=== PATIENT | female | born 1950 | race Caucasian/White ===

== ENCOUNTER 2020-01-05 14:05 | Inpatient (IN) | payer MEDICARE, OTHER ==
[~2020-01-05] VITALS: Ht 152.4 cm; Wt 50.8 kg
[2020-01-05] MEDS ORDERED: CLON0.5T4 PO (14:21)
[2020-01-05] MEDS ORDERED: NA P133E RC (14:21)
[2020-01-05] MEDS ORDERED: BISA10SU61 RC (14:21)
[2020-01-05] MEDS ORDERED: CHOL239. PO (14:21)
[2020-01-05] MEDS ORDERED: ZINC28PA TP (14:21)
[2020-01-05] MEDS ORDERED: LISI30TA4 PO (14:21)
[2020-01-05] MEDS ORDERED: HYDR-4384 PO (14:21)
[2020-01-05] MEDS ORDERED: ESCI20TA PO (14:21)
[2020-01-05] MEDS ORDERED: CLON1TAB12 PO (14:21)
[2020-01-05] MEDS ORDERED: ACET-2605 PO (14:22)
[2020-01-05] MEDS ORDERED: MEMA1CAP3 PO (14:22)
[2020-01-05] MEDS ORDERED: MIRT15TA7 PO (14:22)
[2020-01-05] MEDS ORDERED: DIPH1TAB PO (14:22)
[2020-01-05] MEDS ORDERED: MARINOL PO (14:22)
[2020-01-05] MEDS ORDERED: AMLO10TA4 PO (14:22)
[2020-01-05] MEDS ORDERED: PANT40TA2 PO (14:22)
[2020-01-05] MEDS ORDERED: MULT-594 PO (14:22)
[2020-01-05] MEDS ORDERED: ONDA-104 PO (14:22)
[2020-01-05] MEDS ORDERED: QUET25TA PO (14:22)
[2020-01-05] MEDS ORDERED: RISP0.5T20 PO (14:22)
[2020-01-05] MEDS ORDERED: MAGN400O6 PO (14:22)
[2020-01-05] MEDS ORDERED: MELA3TAB41 PO (14:22)
--- NOTE | 2020-01-05 14:28 | NUR ---
1:1 sitter at bedside
--- NOTE | 2020-01-05 14:30 | NUR ---
Patient noted with increased agitation and repeated attempts to get out of bed unassisted. Attempted to redirect patient, patient noted swinging arms, slapping, and attempting to bite staff. Dr. Zurita made aware with new orders received
--- NOTE | 2020-01-05 14:40 | NUR ---
1:1 sitter at bedside
--- NOTE | 2020-01-05 14:40 | NUR ---
Patient placed on albertina chair per Dr. Zurita's orders
[2020-01-05] MEDS ORDERED: LORAZEPAM 2 MG/1 ML VIAL IM ONE (14:45)
[2020-01-05] MEDS ORDERED: HALOPERIDOL LACTATE 5 MG/1 ML VIAL IM ONE (14:45)
[2020-01-05] MEDS ORDERED: HALOPERIDOL LACTATE 5 MG/1 ML VIAL ONE (14:46)
[2020-01-05] MEDS ORDERED: LORAZEPAM 2 MG/1 ML VIAL ONE (14:48)
--- NOTE | 2020-01-05 15:46 | NUR ---
Called Quynh Nuñez requesting to evaluate patient. Per Quynh will wait on COVID-19 results before evaluating patient
--- NOTE | 2020-01-05 17:32 | NUR ---
Quynh Nuñez notified with ETA of 20 mins
--- NOTE | 2020-01-05 18:00 | NUR ---
Patient in albertina chair calm and watching TV 1:1 sitter at bedside
--- NOTE | 2020-01-05 18:15 | NUR ---
Quynh Nuñez at bedside to evaluate patient
--- NOTE | 2020-01-05 19:13 | NUR ---
Assumed care of patient from KHARI Bruce.
[2020-01-05] MEDS ORDERED: MAG HYDROX/AL HYDROX/SIMETH 30 ML LIQUID UDC PO PRN (19:45)
[2020-01-05] MEDS ORDERED: BLOOD SUGAR DIAGNOSTIC 1 EACH STRIP VI ONE (19:45)
[2020-01-05] MEDS ORDERED: CLONAZEPAM 0.5 MG TABLET PO PRN (19:45)
[2020-01-05] MEDS ORDERED: MAGNESIUM HYDROXIDE 30 ML LIQUID UDC PO PRN (19:45)
--- NOTE | 2020-01-05 19:45 | NUR ---
Pt. admitted to [facility]HU, under care of Dr. Kaur. Belongs List completed. Report given to KHARI Hensley.
[2020-01-05 20:13] VITALS: BP 123/78
--- NOTE | 2020-01-05 21:30 | NUR ---
GPS ADMISSION NOTE: AT APPROX 1999, ADMITTED 69 YEARS OLD FEMALE TO [facility] ON A 5150 FOR GD AND DTO. PATIENT RESIDES AT [facility]. ACCORDING TO THE HOLD, PATIENT WAS BIBA TO [facility] D/T PATIENT HAD EPISODES OF AGITATION, HAS BEEN REFUSING MEDICATION AND SHOWED AGGRESSION TOWARD STAFF AND RESIDENTS AT HER SNF. SHE WAS PUT IN RESTRAIN ON IN ROAD D/T KICKING BITTING AND HITTING. AT [facility], PATIENT WAS MEDICALLY CLEARED AND GIVEN ATIVAN 1 MG IM. UPON ADMISSION, PATIENT WAS NOTED A/O X 1, ANXIOUS, BUT REDIRECTABLE. PT IS UNABLE TO HAVE A MEANINGFUL CONVERSATION WITH THIS EVALUATION ANALYST. SHE WAS UNABLE TO COOPERATE WITH THE ADMISSION PROCESS. PT WAS ADVISED OF HER HOLD AND HER ADVISEMENT WAS GIVEN WELL HAS HER "PATIENT'S RIGHT FOR MENTAL HEALTH" BOOKLET. SHOWER WAS GIVEN. SKIN ASSESSMENT DONE. MULTIPLE ABRASION AND BRUISES WERE NOTED IN BOTH ARMS AND LEFT KNEE REDNESS. IT WAS ALSO NOTED BLISTER IN BOTH INNER BIG TOES. WOUND CONS WAS ORDERED. PT APPEARS TO AMBULATE WITH STEADY GAIT; HOWEVER, PT WAS ORDER WAS WELL. PT IS UNDER THE CARE OF DR ZAMORA. WILL CONTINUE WITH Q15 MIN CHECKS.
--- NOTE | 2020-01-06 06:47 | NUR ---
PATIENT SLEPT FOR APPROX 7.30 HRS THROUGH THE NIGHT. SHE IS NOTED CONFUSED, WONDERING AND HARD TO REDIRECT. WILL CONTINUE TO MONITOR.
[2020-01-06 07:30] VITALS: BP 144/62
[2020-01-06 07:33] LABS: BILIRUBIN,TOTAL 0.8 mg/dL (0.2-1.0); POTASSIUM 3.8 mmol/L (3.5-5.1); TOTAL PROTEIN, SERUM 7.3 g/dL (6.4-8.2)
--- NOTE | 2020-01-06 09:59 | NUR ---
SNF CONTACT: SW contacted [facility] [address], [place] [address] and spoke with Tamara, application support administrator who stated pt has been a resident at the facility since 11/25/2017 and states that pts re-acceptance to the facility is contingent upon review of clinical information and proof of stability.
--- NOTE | 2020-01-06 10:19 | NUR ---
FAMILY CONTACT: SW contacted pts Linette ([phone]) for collateral information, treatment/discharge planning. Per , this is pts first psychiatric hospitalization and states that pt has been diagnosed with Dementia 8 years ago. Per , pts behaviors worsened in August as soon as the COVID-19 lock down happened. She states pt has become aggressive and threatening to kick and punch staff and also refusing medication and trying to elope. Pt is also having delusional and often states that people are cutting her arms and are tying and beating her. states that pt has frequent bladder infections and that recently blood work revealed that she may have a tumor in her stomach but pt has refused to get a CT scan. stated that she wishes for pt to return to [facility] once stable for discharge.
--- NOTE | 2020-01-06 10:59 | NUR ---
INITIAL DISCHARGE PLAN: Per Linette ([phone]) she wishes for pt to return to [facility] [address] [place] [address] . ANNETTE spoke with Tamara, home health administrator who stated pt has been a resident at the facility since 11/25/2017 and states that pts re-acceptance to the facility is contingent upon review of clinical information and proof of stability. ANNETTE will help form a safe and proper discharge plan in collaboration with .
[2020-01-06] MEDS: CLONAZEPAM 1 MG TABLET PO PRN (11:35)
[2020-01-06] MEDS: risperiDONE 0.5 MG TABLET PO SCH ×2 (15:05→20:40)
[2020-01-06] MEDS: ESCITALOPRAM OXALATE 10 MG TABLET PO SCH (15:05)
[2020-01-06 16:41] VITALS: BP 147/75
[2020-01-06] MEDS: MIRTAZAPINE 15 MG TABLET PO SCH (20:40)
[2020-01-06 21:22] VITALS: BP 148/82
--- NOTE | 2020-01-07 04:15 | NUR ---
Patient noted wondering in the hallway. She stated, "I need to go home". patient was redirected; Hoever, she continue stating, "This is not my bed, I want to go home". Patient was redirected, and reoriented to place and time. She agreed to stay in bed and she quickly went back to sleep.will continue to monitor.
--- NOTE | 2020-01-07 06:21 | NUR ---
GPS/NSG DR. Bland contacted and informed of wound consult.
[2020-01-07 07:30] VITALS: BP 127/58
[2020-01-07] MEDS: risperiDONE 0.5 MG TABLET PO SCH ×2 (09:01→20:57)
[2020-01-07] MEDS: ESCITALOPRAM OXALATE 10 MG TABLET PO SCH (09:01)
--- NOTE | 2020-01-07 11:20 | NUR ---
WOUND CARE CONSULT: PT SEEN FOR BILATERAL ARM DISCOLORATION AND DRY ABRASIONS. NO DRAINAGE, ERYTHEMA OR TENDERNESS NOTED. WILL SEE PRN. PT IS AMBULATORY.
--- NOTE | 2020-01-07 11:23 | NUR ---
Gps/Trail Maintenance Worker- Wound Care Nurse Kassandra romero to see patient, checked scratches/abrasion, bruising to her forearms and right elbow, redness noted appeared to be dry. Poorly groomed toebnails, flaky bunions/redness .
--- NOTE | 2020-01-07 12:01 | NUR ---
Gps/Portable Machine Cutter- Patient constantly asking for her shoes and clothes, needed to go home per pt. redirected back to her room, reoriented, tends to wanders around , worried look on her face
[2020-01-07] MEDS: CLONAZEPAM 1 MG TABLET PO PRN (12:28)
[2020-01-07 15:25] VITALS: BP 119/59
[2020-01-07] MEDS: MIRTAZAPINE 15 MG TABLET PO SCH (20:57)
[2020-01-07] MEDS: TEMAZEPAM 7.5 MG CAPSULE PO PRN (21:06)
[2020-01-07 21:20] VITALS: BP 113/53
[2020-01-08 07:30] VITALS: BP 142/79
[2020-01-08] MEDS: ESCITALOPRAM OXALATE 10 MG TABLET PO SCH ×2 (09:05→09:06)
[2020-01-08] MEDS: risperiDONE 0.5 MG TABLET PO SCH ×2 (09:05→21:17)
[2020-01-08] MEDS: CLONAZEPAM 1 MG TABLET PO PRN (13:02)
[2020-01-08] MEDS: ACETAMINOPHEN 325 MG TABLET PO PRN (13:42)
[2020-01-08] MEDS: NEOMY/BACITRAC/POLYMI OINT 28.35 GM TUBE TOP SCH (17:41)
[2020-01-08 20:58] VITALS: BP 145/57
[2020-01-08] MEDS: MIRTAZAPINE 15 MG TABLET PO SCH (21:17)
[2020-01-08] MEDS: TEMAZEPAM 7.5 MG CAPSULE PO PRN (22:55)
[2020-01-09] MEDS: CLONAZEPAM 1 MG TABLET PO PRN ×3 (04:03→17:30)
--- NOTE | 2020-01-09 04:03 | NUR ---
PRN Klonopin given for anxiety per MD order. Will continue to monitor
[2020-01-09] MEDS: NEOMY/BACITRAC/POLYMI OINT 28.35 GM TUBE TOP SCH ×2 (06:31→16:51)
[2020-01-09 07:30] VITALS: BP 133/64
[2020-01-09] MEDS: risperiDONE 0.5 MG TABLET PO SCH ×2 (08:06→20:20)
[2020-01-09] MEDS: ESCITALOPRAM OXALATE 10 MG TABLET PO SCH (08:06)
[2020-01-09] MEDS: ACETAMINOPHEN 325 MG TABLET PO PRN (09:37)
[2020-01-09] MEDS ORDERED: HALOPERIDOL LACTATE 5 MG/1 ML VIAL IM ONE (10:30)
[2020-01-09] MEDS ORDERED: BENZTROPINE MESYLATE 2 MG/2 ML AMPUL IM ONE (10:30)
--- NOTE | 2020-01-09 10:38 | NUR ---
GPS/solar installer- Difficulty redirecting patient, scratching staff as they tried to redirect her . Increased agitation, hangs out by the door, pushing doors, awol risk. Wanders around , going room to room, confused, no clue when she is . Called Linette to talk to patient, to help her calm down , but with no results.Continue to monitor behavior
[2020-01-09 11:14] LABS: BASOPHILS % (AUTO) 0.6 % (0.0-2.0); EOSINOPHILS % (AUTO) 0.2 % (0.0-7.0); HEMATOCRIT 37.2 % (31.2-41.9); HEMOGLOBIN 12.5 g/dL (10.9-14.3); LYMPHOCYTES % (AUTO) 13.8 % (20.5-51.5); MEAN CORPUSCULAR HGB CONC 34 g/dL (32.3-35.6); MEAN CORPUSCULAR VOLUME 92.6 fL (75.5-95.3); MONOCYTES # (AUTO) 0.5 K/uL (2.0-10.0); MONOCYTES % (AUTO) 7.8 % (0.0-11.0); NEUTROPHILS # (AUTO) 5.4 K/uL (1.8-8.9); NEUTROPHILS % (AUTO) 77.6 % (38.5-71.5); PLATELET COUNT (AUTO) 168 K/uL (179-408); RED BLOOD CELL COUNT(AUTO) 4.02 MIL/uL (3.63-4.92); WHITE BLOOD COUNT (AUTO) 6.9 K/uL (3.8-11.8)
[2020-01-09 11:29] LABS: BILIRUBIN,TOTAL 0.3 mg/dL (0.2-1.0); CREATININE 0.9 mg/dL (0.6-1.3); TOTAL PROTEIN, SERUM 6.8 g/dL (6.4-8.2)
[2020-01-09] MEDS: MEMANTINE HCL 10 MG TABLET PO SCH ×2 (12:15→20:20)
[2020-01-09 14:48] LABS: *BILIRUBIN,URIN NEGATIVE (NEGATIVE); *BLOOD, URINE NEGATIVE (NEGATIVE); *CLARITY,URINE CLEAR (CLEAR); *COLOR,URINE YELLOW (YELLOW); *KETONES,URINE NEGATIVE (NEGATIVE); *UROBILINOGEN,URINE 0.2 E.U./dl (NORMAL); LEUKOCYTE ESTERASE ,URINE TRACE (NEGATIVE); NITRITE, URINE NEGATIVE (NEGATIVE); PH,URINE 6.5 (5.0-8.0); UGLUCOSE NEGATIVE (NEGATIVE)
[2020-01-09 15:20] VITALS: BP 138/68
[2020-01-09 16:24] LABS: BACTERIA,URINE RARE /HPF (NONE SEEN); RBC,URINE 0-3 /HPF (0-3); SQUAMOUS EPITHELIAL CELL,UR FEW /HPF (NONE SEEN)
--- NOTE | 2020-01-09 17:30 | NUR ---
Gps/Pocketbook Maker- Anxious ,,pacing back and forth the hallway, stayed up in the dinning room during during,, encouraged to feed self , adequate fluid intake. Urine specimen was sent to lab. Patient was able to talked to her better half, Linette .
[2020-01-09] MEDS: MIRTAZAPINE 15 MG TABLET PO SCH (20:19)
[2020-01-09 20:23] VITALS: BP 130/72
[2020-01-09] MEDS: TEMAZEPAM 7.5 MG CAPSULE PO PRN (23:35)
[2020-01-10] MEDS: NEOMY/BACITRAC/POLYMI OINT 28.35 GM TUBE TOP SCH ×2 (06:12→16:43)
--- NOTE | 2020-01-10 06:12 | NUR ---
Received patient, earlier in the shift, sitting on the edge of the bed. Automotive Product Engineer allowed patient to ambulate in the halls but being as patient is very confused she kept going in and out of other peoples rooms. Patient was in albertina chair for a bit, then put into bed and slept 5:45 hours. This patient requires reorientation and redirection on a continuous level. Monitoring closely for safety, and behavior escalation. Patient remained calm during the night and did not lash out at staff or peers.
[2020-01-10 07:30] VITALS: BP 113/53
[2020-01-10] MEDS: MEMANTINE HCL 10 MG TABLET PO SCH ×2 (09:00→21:00)
[2020-01-10] MEDS: ESCITALOPRAM OXALATE 10 MG TABLET PO SCH (09:00)
[2020-01-10] MEDS: risperiDONE 0.5 MG TABLET PO SCH ×2 (09:00→21:00)
[2020-01-10] MEDS ORDERED: FLEET ENEMA 133 ML BOTTLE RC PRN (11:30)
[2020-01-10] MEDS ORDERED: BISACODYL 10 MG SUPP.RECT RC PRN (11:30)
[2020-01-10] MEDS ORDERED: MAGNESIUM HYDROXIDE 30 ML LIQUID UDC PO PRN (11:30)
[2020-01-10] MEDS ORDERED: HYDROCODONE/APAP 5-325MG TABLET PO PRN (11:30)
[2020-01-10] MEDS: PANTOPRAZOLE SODIUM 40 MG TABLET.DR PO SCH (11:30)
[2020-01-10] MEDS ORDERED: ONDANSETRON HCL 4 MG TABLET PO PRN (11:30)
[2020-01-10] MEDS ORDERED: ACETAMINOPHEN ES 500 MG TABLET PO PRN (11:30)
[2020-01-10 15:53] VITALS: BP 125/55
[2020-01-10 20:00] VITALS: BP 126/52
[2020-01-10] MEDS: MIRTAZAPINE 15 MG TABLET PO SCH (21:00)
--- NOTE | 2020-01-10 21:00 | NUR ---
Received patient in bed sleeping but arousable.VS are stable. Per report this patient has been sleeping all day. Medications held at this time. Monitoring closely for safety. Assistance to the bathroom given when needed. After patient becomes more awake, marketing copywriter will encourage fluids and provide a snack.
[2020-01-11] MEDS: ACETAMINOPHEN 325 MG TABLET PO PRN ×2 (03:25→15:04)
--- NOTE | 2020-01-11 03:28 | NUR ---
Patient woke up. Loader Helper took her to the bathroom, gave her a shower and some food. The patient asked to go back to bed after that. Still confused and thought she was getting up to go to work. Explained to patient they were in the hospital. Reoriented patient to the environment. Patient is clam and cooperative at this time. Monitoring for safety. Will resume am medications as scheduled.
[2020-01-11] MEDS: NEOMY/BACITRAC/POLYMI OINT 28.35 GM TUBE TOP SCH ×2 (06:19→17:05)
[2020-01-11] MEDS: CLONAZEPAM 1 MG TABLET PO PRN ×2 (07:27→15:04)
[2020-01-11 07:53] VITALS: BP 169/100
[2020-01-11] MEDS: AMLODIPINE 10 MG TABLET PO SCH (08:13)
[2020-01-11] MEDS: MEMANTINE HCL 10 MG TABLET PO SCH ×2 (08:13→21:13)
[2020-01-11] MEDS: ESCITALOPRAM OXALATE 10 MG TABLET PO SCH (08:13)
[2020-01-11] MEDS: MULTIVITAMINS,THERAPEUTIC TABLET PO SCH (08:13)
[2020-01-11] MEDS: risperiDONE 0.5 MG TABLET PO SCH ×2 (08:13→21:14)
[2020-01-11] MEDS: PANTOPRAZOLE SODIUM 40 MG TABLET.DR PO SCH (08:13)
[2020-01-11 15:17] VITALS: BP 99/64
[2020-01-11 20:32] VITALS: BP 104/50
[2020-01-11] MEDS: MIRTAZAPINE 15 MG TABLET PO SCH (21:13)
--- NOTE | 2020-01-12 05:14 | NUR ---
GPS: PT WAS RECEIVED ASLEEP, BREATHING EVEN AND NOTED RISE OF CHEST. WARM TO TOUCH AND NO S/S ACUTE DISTRESS. PT WAS AWAKE TO ROUTINE MEDICATION AND SNACK GIVEN. TOLERATED ALL ORDERS WELL AND LAID BACK RESTING. PT SLEPT ABOUT 7 HOURS DURING NIGHT. AWAKE AND NOW PACING IN HALLWAY AND TRYING TO LEAVE WITH FREQUENT REMINDER. WILL CONTINUE TO MONITOR.
[2020-01-12 07:30] VITALS: BP 112/67
[2020-01-12] MEDS: NEOMY/BACITRAC/POLYMI OINT 28.35 GM TUBE TOP SCH ×2 (07:47→17:07)
--- NOTE | 2020-01-12 08:00 | NUR ---
GPS: received patient AOx1, patient confused pacing in the hallway and wanted to go home, patient compliant with medication , anxious and confused at this time, assisted her to make a phone call with her partner, patient redirectable stays in bed after PRN medication given , denies SI and HI
[2020-01-12] MEDS: risperiDONE 0.5 MG TABLET PO SCH ×2 (08:40→20:33)
[2020-01-12] MEDS: ESCITALOPRAM OXALATE 10 MG TABLET PO SCH (08:41)
[2020-01-12] MEDS: MULTIVITAMINS,THERAPEUTIC TABLET PO SCH (08:41)
[2020-01-12] MEDS: PANTOPRAZOLE SODIUM 40 MG TABLET.DR PO SCH (08:41)
[2020-01-12] MEDS: MEMANTINE HCL 10 MG TABLET PO SCH ×2 (08:42→20:33)
[2020-01-12] MEDS: AMLODIPINE 10 MG TABLET PO SCH (09:00)
[2020-01-12] MEDS: CLONAZEPAM 1 MG TABLET PO PRN ×2 (10:46→22:15)
--- NOTE | 2020-01-12 14:33 | NUR ---
Social Work Note: Patient appears to be disorganized and disoriented. Patient continuously is asking to go home and is fixated on talking to Linette. Patient grabbed this writers hand and was not letting go. Patient appeared fearful. This travel writer attempted to calm patient down by helping her call Linette.
[2020-01-12 16:07] VITALS: BP 119/62
[2020-01-12 20:09] VITALS: BP 110/54
[2020-01-12] MEDS: MIRTAZAPINE 15 MG TABLET PO SCH (20:33)
[2020-01-13] MEDS: TEMAZEPAM 7.5 MG CAPSULE PO PRN (02:00)
[2020-01-13] MEDS: NEOMY/BACITRAC/POLYMI OINT 28.35 GM TUBE TOP SCH ×2 (06:13→16:33)
--- NOTE | 2020-01-13 06:52 | NUR ---
PT SLEPT 6 HAND 15 MINUTES. PT PLEASANT WHEN APPROACHED. PT SPACING OUT. PT NEED REORIENTATION. PT GIVEN KLONOPIN AT 2215H FOR RESTLESSNESS AND ANXIOUS. PT KEEP REPEATING THAT IF THERE IS [facility] STAFF HERE IN OUR HOSPITAL.PT KEEP COMING BACK AND FORTH TO NURSES STATION . PT GIVEN RESTORIL AT 0200H. PT HAS LIMITED CONCENTRATION AND POOR ATTENTION. SAFETY AND COMFORT PROVIDED. WILL ENDORSE TO INCOMING NURSE.
[2020-01-13 07:30] VITALS: BP 133/80
--- NOTE | 2020-01-13 08:00 | NUR ---
GPS:received patient AOx1, patient calm in her room, redirectable, patient complinat with medication denies SI and HI
[2020-01-13] MEDS: PANTOPRAZOLE SODIUM 40 MG TABLET.DR PO SCH (08:19)
[2020-01-13] MEDS: risperiDONE 0.5 MG TABLET PO SCH (08:20)
[2020-01-13] MEDS: AMLODIPINE 10 MG TABLET PO SCH (08:20)
[2020-01-13] MEDS: MULTIVITAMINS,THERAPEUTIC TABLET PO SCH (08:20)
[2020-01-13] MEDS: MEMANTINE HCL 10 MG TABLET PO SCH ×2 (08:22→20:26)
[2020-01-13] MEDS: ESCITALOPRAM OXALATE 10 MG TABLET PO SCH (08:22)
[2020-01-13 17:01] VITALS: BP 156/84
[2020-01-13] MEDS: CLONAZEPAM 1 MG TABLET PO PRN (18:39)
--- NOTE | 2020-01-13 18:43 | NUR ---
patient getting restless and anxious, asking for the software writer to help her about the toilet paper, patient was help and after a minute patient came back and patient keep on doin it and started to get anxious, prn medication given, patient comforted on her bed
[2020-01-13] MEDS: MIRTAZAPINE 15 MG TABLET PO SCH (20:26)
[2020-01-13] MEDS: risperiDONE 1 MG TABLET PO SCH (20:28)
[2020-01-13 21:01] VITALS: BP 112/63
--- NOTE | 2020-01-13 22:45 | NUR ---
Received patient in bed. Confused. Needed redirection. Compliant with medication. Continue to monitor.
[2020-01-14] MEDS: NEOMY/BACITRAC/POLYMI OINT 28.35 GM TUBE TOP SCH ×2 (06:02→16:57)
[2020-01-14 07:30] VITALS: BP 104/63
[2020-01-14] MEDS: ESCITALOPRAM OXALATE 10 MG TABLET PO SCH (08:51)
[2020-01-14] MEDS: MEMANTINE HCL 10 MG TABLET PO SCH ×2 (08:52→21:08)
[2020-01-14] MEDS: MULTIVITAMINS,THERAPEUTIC TABLET PO SCH (08:52)
[2020-01-14] MEDS: risperiDONE 1 MG TABLET PO SCH ×2 (08:52→21:08)
[2020-01-14] MEDS: PANTOPRAZOLE SODIUM 40 MG TABLET.DR PO SCH (08:52)
[2020-01-14] MEDS: AMLODIPINE 10 MG TABLET PO SCH (08:53)
--- NOTE | 2020-01-14 10:40 | NUR ---
ANNETTE Coordination of Care: ANNETTE contacted [facility] (ph: [phone] fax: [phone]) and spoke with Tamara, logistics administrator and faxed her updated patient clinicals for review.
--- NOTE | 2020-01-14 14:53 | NUR ---
ANNETTE Individual Therapy Note: SW met with patient for brief individual counseling to address patient's aggressive and combative behaviors. Patient presents disorganized and disoriented. SW attempted to orient patient to his presenting problems, however patient is unable to engage in a meaningful conversation due to being confused. Patient need frequent redirection.
[2020-01-14] MEDS: DIVALPROEX SPRINKLE 125 MG CAP.SPRINK PO SCH ×2 (14:58→16:57)
[2020-01-14 16:00] VITALS: BP 131/79
--- NOTE | 2020-01-14 16:23 | NUR ---
Pt received resting in bed, confused, no acute distress noted, able to make needs known. Calm upon approach, and cooperative with taking medications. No behavioral issues. Remained isolated most of the shift. Will continue to monitor for safety.
[2020-01-14 20:00] VITALS: BP 127/68
[2020-01-14] MEDS: MIRTAZAPINE 15 MG TABLET PO SCH (21:08)
[2020-01-15] MEDS: NEOMY/BACITRAC/POLYMI OINT 28.35 GM TUBE TOP SCH ×2 (06:04→17:03)
--- NOTE | 2020-01-15 06:56 | NUR ---
Patient awake walking through the hallway, Hesitating to go back to her room . Reoriented back to the room.Slept for 7.30 hrs.antibiotic ointment applied on the wounds on bilateral arms as ordered. Refused shower
[2020-01-15 07:30] VITALS: BP 139/84
[2020-01-15] MEDS: MULTIVITAMINS,THERAPEUTIC TABLET PO SCH (08:17)
[2020-01-15] MEDS: ESCITALOPRAM OXALATE 10 MG TABLET PO SCH (08:17)
[2020-01-15] MEDS: risperiDONE 1 MG TABLET PO SCH ×2 (08:17→21:24)
[2020-01-15] MEDS: DIVALPROEX SPRINKLE 125 MG CAP.SPRINK PO SCH ×3 (08:17→17:03)
[2020-01-15] MEDS: PANTOPRAZOLE SODIUM 40 MG TABLET.DR PO SCH (08:18)
[2020-01-15] MEDS: AMLODIPINE 10 MG TABLET PO SCH (08:19)
[2020-01-15] MEDS: CLONAZEPAM 1 MG TABLET PO PRN (08:21)
[2020-01-15] MEDS: MEMANTINE HCL 10 MG TABLET PO SCH ×2 (09:13→21:24)
--- NOTE | 2020-01-15 13:43 | NUR ---
called and spoke with regarding patient anxious and pacing , restless and needed constant redirection, Dr. Kaur orders for one time klonopin 1mg, orders made and carried out
[2020-01-15] MEDS ORDERED: CLONAZEPAM 1 MG TABLET PO ONE (13:45)
[2020-01-15 16:20] VITALS: BP 95/53
--- NOTE | 2020-01-15 17:55 | NUR ---
patient was pacing back and forth constantly, redirected multiple times, extra dose of Klonopin administered as ordered, effective for 3 hours, kept safe, patient denied hallucination, denied any suicidal thoughts, continue to monitor per facility policy.
[2020-01-15 20:18] VITALS: BP 101/56
[2020-01-15] MEDS: MIRTAZAPINE 15 MG TABLET PO SCH (21:24)
[2020-01-16] MEDS: CLONAZEPAM 1 MG TABLET PO PRN ×2 (01:17→14:01)
[2020-01-16] MEDS: NEOMY/BACITRAC/POLYMI OINT 28.35 GM TUBE TOP SCH ×2 (06:33→16:23)
[2020-01-16 07:30] VITALS: BP 108/69
--- NOTE | 2020-01-16 08:00 | NUR ---
GPS: received patient asleep on bed, woke up, went to rest room, appears to be anxious, patient confused and needed redirection, patient ate her breakfast and compliant with medication, patient then went back to bed after her meal, will continue monitor
[2020-01-16] MEDS: ESCITALOPRAM OXALATE 10 MG TABLET PO SCH (08:22)
[2020-01-16] MEDS: MULTIVITAMINS,THERAPEUTIC TABLET PO SCH (08:22)
[2020-01-16] MEDS: risperiDONE 1 MG TABLET PO SCH ×2 (08:22→20:20)
[2020-01-16] MEDS: DIVALPROEX SPRINKLE 125 MG CAP.SPRINK PO SCH ×3 (08:22→16:20)
[2020-01-16] MEDS: PANTOPRAZOLE SODIUM 40 MG TABLET.DR PO SCH (08:22)
[2020-01-16] MEDS: MEMANTINE HCL 10 MG TABLET PO SCH ×2 (08:23→20:20)
[2020-01-16] MEDS: AMLODIPINE 10 MG TABLET PO SCH (09:00)
--- NOTE | 2020-01-16 15:54 | NUR ---
patient approach the nursing station, patient somewhat anxious and pacing, patient verbalizing that shes fire in her room, tried to redirect the patient, patient keep on coming back and anxious, until she goes back to her room
[2020-01-16 16:00] VITALS: BP 109/67
--- NOTE | 2020-01-16 18:16 | NUR ---
patient calm in her room, no distress, ate her dinner, kept safe
[2020-01-16 20:00] VITALS: BP 104/62
[2020-01-16] MEDS: MIRTAZAPINE 15 MG TABLET PO SCH (20:20)
[2020-01-17] MEDS: NEOMY/BACITRAC/POLYMI OINT 28.35 GM TUBE TOP SCH ×2 (06:15→16:21)
[2020-01-17 07:30] VITALS: BP 122/54
--- NOTE | 2020-01-17 08:00 | NUR ---
GPS: received patient AOx1, patient calm , thought disorganized, redirectable, no distress,
[2020-01-17] MEDS: DIVALPROEX SPRINKLE 125 MG CAP.SPRINK PO SCH ×2 (08:14→12:15)
[2020-01-17] MEDS: PANTOPRAZOLE SODIUM 40 MG TABLET.DR PO SCH (08:14)
[2020-01-17] MEDS: MEMANTINE HCL 10 MG TABLET PO SCH ×2 (08:15→20:04)
[2020-01-17] MEDS: risperiDONE 1 MG TABLET PO SCH ×2 (08:15→20:04)
[2020-01-17] MEDS: ESCITALOPRAM OXALATE 10 MG TABLET PO SCH (08:15)
[2020-01-17] MEDS: MULTIVITAMINS,THERAPEUTIC TABLET PO SCH (08:16)
[2020-01-17] MEDS: AMLODIPINE 10 MG TABLET PO SCH (09:00)
--- NOTE | 2020-01-17 15:06 | NUR ---
ANNETTE Individual Therapy Note: SW met with patient for brief individual counseling to address patient's aggressive and combative behaviors. Patient presents anxious and remain with delusional thought process. SW provided reassurance to help patient gain insight into her presenting problems, however patient is not receptive to therapy at this time.
[2020-01-17 15:41] VITALS: BP 116/56
[2020-01-17] MEDS: DIVALPROEX ER 250 MG TAB.SR.24H PO SCH (16:20)
[2020-01-17] MEDS: CLONAZEPAM 1 MG TABLET PO PRN (17:16)
--- NOTE | 2020-01-17 18:27 | NUR ---
patient been cooperative, attended group therapy , patient redirectable, denies SI and HI, patient aware of her DC planning and been cooperative with the plan, patient express gratitude towards staff, will continue monitor
[2020-01-17 20:00] VITALS: BP 120/55
[2020-01-17] MEDS: MIRTAZAPINE 15 MG TABLET PO SCH (20:04)
--- NOTE | 2020-01-17 21:08 | NUR ---
Received pt sleeping in bed. Aroused easily to verbal stimuli. No acute distress noted. Denies SI/ HI. Due meds given as ordered. Safety measures maintained. Will continue to monitor.
[2020-01-18] MEDS: NEOMY/BACITRAC/POLYMI OINT 28.35 GM TUBE TOP SCH ×2 (06:03→16:37)
[2020-01-18 07:30] VITALS: BP 123/70
[2020-01-18] MEDS: MULTIVITAMINS,THERAPEUTIC TABLET PO SCH (08:13)
[2020-01-18] MEDS: DIVALPROEX ER 250 MG TAB.SR.24H PO SCH ×2 (08:13→16:37)
[2020-01-18] MEDS: risperiDONE 1 MG TABLET PO SCH ×2 (08:14→20:46)
[2020-01-18] MEDS: AMLODIPINE 10 MG TABLET PO SCH (08:14)
[2020-01-18] MEDS: PANTOPRAZOLE SODIUM 40 MG TABLET.DR PO SCH (08:14)
[2020-01-18] MEDS: MEMANTINE HCL 10 MG TABLET PO SCH ×2 (08:16→20:46)
[2020-01-18] MEDS: CLONAZEPAM 1 MG TABLET PO PRN (13:14)
[2020-01-18 16:41] VITALS: BP 114/73
[2020-01-18 20:40] VITALS: BP 109/59
[2020-01-18] MEDS: MIRTAZAPINE 15 MG TABLET PO SCH (20:46)
[2020-01-19] MEDS: NEOMY/BACITRAC/POLYMI OINT 28.35 GM TUBE TOP SCH ×2 (05:53→17:00)
--- NOTE | 2020-01-19 06:34 | NUR ---
Pt slept 9.0 hrs. No PRNs given. No aggressive last night.
[2020-01-19 07:30] VITALS: BP 121/66
[2020-01-19] MEDS: AMLODIPINE 10 MG TABLET PO SCH (10:33)
[2020-01-19] MEDS: risperiDONE 1 MG TABLET PO SCH ×2 (10:33→20:31)
[2020-01-19] MEDS: MULTIVITAMINS,THERAPEUTIC TABLET PO SCH (10:33)
[2020-01-19] MEDS: PANTOPRAZOLE SODIUM 40 MG TABLET.DR PO SCH (10:33)
[2020-01-19] MEDS: DIVALPROEX ER 250 MG TAB.SR.24H PO SCH ×2 (10:33→17:31)
[2020-01-19] MEDS: MEMANTINE HCL 10 MG TABLET PO SCH ×2 (10:51→20:31)
[2020-01-19] MEDS: CLONAZEPAM 1 MG TABLET PO PRN (13:57)
[2020-01-19 16:00] VITALS: BP 105/68
--- NOTE | 2020-01-19 19:45 | NUR ---
Received patient in the activity room, alert and confused , little anxious then walks through the hallway agitated pointed to the male nurse . Stated "he's living me and I want to go with him".Redirect patient and cooperative with medication and care.Will continue to monitor.
[2020-01-19 20:00] VITALS: BP 115/76
[2020-01-19] MEDS: MIRTAZAPINE 15 MG TABLET PO SCH (20:31)
[2020-01-20] MEDS: NEOMY/BACITRAC/POLYMI OINT 28.35 GM TUBE TOP SCH (06:00)
--- NOTE | 2020-01-20 06:59 | NUR ---
PAtient slept well about 7 hr, no behaviors issues noted.
[2020-01-20 07:30] VITALS: BP 103/47
--- NOTE | 2020-01-20 07:59 | NUR ---
Social Work Discharge Note: Patient will be discharged back to [facility] [address] [place] [address] (ph: [phone] fax: [phone]). Patient will be provided ambulance transportation at 11AM through [facility] is already scheduled. Tamara is the marketing administrator at the facility who is aware and agreeable with discharge plan. Patient will follow up with (psychiatrist) Dr. Watson and (mobile manager) Dr. Hood at the facility. Patients significant other, Linette ([phone]) is aware and agreeable with discharge plans. Patient is aware and agreeable with discharge plan, alert and oriented x1-2. Patient denies suicidal or homicidal ideation. Patient presents with appropriate mood and congruent affect. Patient is unable to provide care for herself and is willing to continue to accept care provided for her at [facility]
[2020-01-20 09:00] VITALS: BP 103/47
[2020-01-20] MEDS: AMLODIPINE 10 MG TABLET PO SCH (09:00)
[2020-01-20] MEDS: MULTIVITAMINS,THERAPEUTIC TABLET PO SCH (09:21)
[2020-01-20] MEDS: DIVALPROEX ER 250 MG TAB.SR.24H PO SCH (09:21)
[2020-01-20] MEDS: risperiDONE 1 MG TABLET PO SCH (09:21)
[2020-01-20] MEDS: PANTOPRAZOLE SODIUM 40 MG TABLET.DR PO SCH (09:21)
[2020-01-20] MEDS: MEMANTINE HCL 10 MG TABLET PO SCH (09:22)
[2020-01-20] MEDS: CLONAZEPAM 1 MG TABLET PO PRN (11:31)
--- NOTE | 2020-01-20 12:15 | NUR ---
Gps/Farm Or Ranch Animal Caretaker- Called [facility]. report given , also they requested Medication records and Discharge summary for the patient to be faxed to [facility] w/c was done. All belongings given back to patient. Linette (counterperson) aware of the discharge plan . Patient discharged via ambulance , no pain no discomfort noted , no no distress .. Patient given lunch to take with her.No homicidal, nor suicidal ideation noted .Alert oriented x2.
== END 2020-01-20 12:30 | DRG 885 ==
LOC: ER 14:05 → GPS 19:25
PROVIDERS: ADMIT Psychiatry & Neurology Psychiatry; ATTEND Internal Medicine
DX: F33.3 Major depressive disorder, recurrent, severe with psychotic symptoms (principal); F23 Brief psychotic disorder; F03.90 Unspecified dementia, unspecified severity, without behavioral disturbance, psychotic disturbance, mood disturbance, and anxiety; E78.5 Hyperlipidemia, unspecified; E86.0 Dehydration; F41.9 Anxiety disorder, unspecified; K21.9 Gastro-esophageal reflux disease without esophagitis; M21.612 Bunion of left foot; M21.611 Bunion of right foot; I10 Essential (primary) hypertension; L89.896 Pressure-induced deep tissue damage of other site; Z73.6 Limitation of activities due to disability
CPT/HCPCS: 36415; 71045; 80164; 85025; 87086; A4663; J0515; J1630; J2060